=== PATIENT | female | born 1965 | race African-American/Black ===

== ENCOUNTER 2018-04-19 08:58 | Emergency (ER) | payer OTHER ==
[~2018-04-19] VITALS: Ht 167.6 cm; Wt 90.0 kg
[~2018-04-19 08:58] MED LIST: AMLO-512 PO; BENA10TA PO; CALC-613 PO; DOCU-119 PO; GLAT20I SQ; METO-558 PO; OMEP20 PO; TOPI25CA PO
[2018-04-19] MEDS ORDERED: PERTUSS(ACELL),DIPH,TET VAC/PF 0.5 ML VIAL IM ONE (11:15)
[2018-04-19] MEDS ORDERED: BUPIVACAINE/EPI/PF 0.5% 30 ML VIAL SQ ONE (11:45)
[2018-04-19 12:14] VITALS: BP 139/80
== END 2018-04-19 12:26 | disposition home or self-care (01) ==
LOC: EMS 09:04
DX: S81.011A Laceration without foreign body, right knee, initial encounter (principal); I10 Essential (primary) hypertension; E78.00 Pure hypercholesterolemia, unspecified; W25.XXXA Contact with sharp glass, initial encounter; Y93.89 Activity, other specified; Y92.89 Other specified places as the place of occurrence of the external cause; Y99.8 Other external cause status
CPT/HCPCS: 12002; 73562; 90471; 90715; 99283; J3490

== ENCOUNTER 2018-04-27 05:55 | Emergency (ER) | payer OTHER ==
[~2018-04-27] VITALS: Ht 167.6 cm; Wt 90.0 kg
[2018-04-27 06:11] VITALS: BP 133/86
== END 2018-04-27 06:37 | disposition home or self-care (01) ==
LOC: EMS 05:56
DX: S81.011D Laceration without foreign body, right knee, subsequent encounter (principal); E78.00 Pure hypercholesterolemia, unspecified; I10 Essential (primary) hypertension; Z90.710 Acquired absence of both cervix and uterus; Z79.899 Other long term (current) drug therapy; X58.XXXD Exposure to other specified factors, subsequent encounter

== ENCOUNTER 2023-09-22 10:29 | Emergency (ER) | payer OTHER ==
[~2023-09-22] VITALS: Ht 170.2 cm; Wt 109.1 kg
[~2023-09-22 10:29] MED LIST changes: +AMLO-258 PO; -AMLO-512 PO; +METO-325 PO; -METO-558 PO
[2023-09-22 10:36] VITALS: BP 140/95; PULSE 82; RESP 18; TEMP 98
[2023-09-22] MEDS ORDERED: CORTSOL AU (11:23)
[2023-09-22] MEDS ORDERED: AMOX1TAB16 PO (11:23)
[2023-09-22] MEDS ORDERED: IBUP-1492 PO (11:23)
[2023-09-22] MEDS ORDERED: ACET-3385 PO (11:23)
[2023-09-22] MEDS: IBUPROFEN 600 MG TABLET PO ONE (11:26)
[2023-09-22] MEDS: AMOX TR/POT CLAV 875 MG/125 MG TABLET PO ONE (11:26)
[2023-09-22] MEDS ORDERED: BENA40TA92 PO (11:27)
[2023-09-22] MEDS ORDERED: GABA-1181 PO (11:27)
[2023-09-22] MEDS ORDERED: AMLO10TA55 PO (11:27)
[2023-09-22] MEDS ORDERED: DOCU100C33 PO (11:27)
[2023-09-22] MEDS ORDERED: FAMO20 PO (11:27)
[2023-09-22] MEDS ORDERED: CALC-1271 PO (11:27)
[2023-09-22] MEDS ORDERED: GLAT40SY SQ (11:27)
[2023-09-22] MEDS ORDERED: METO25 PO (11:27)
[2023-09-22] MEDS ORDERED: LORA10TA7 PO (11:27)
[2023-09-22] MEDS ORDERED: ATOR40TA71 PO (11:27)
[2023-09-22] MEDS ORDERED: LATA2.5D14 OU (11:27)
[2023-09-22] MEDS: NEOMYCIN/POLYMYXIN B/HYDROCORT 10 ML OTIC SOLUTION AU ONE (11:48)
== END 2023-09-22 11:51 | disposition home or self-care (01) ==
LOC: EMS 10:33
DX: H66.93 Otitis media, unspecified, bilateral (principal); H60.93 Unspecified otitis externa, bilateral; E78.00 Pure hypercholesterolemia, unspecified; I10 Essential (primary) hypertension; G43.909 Migraine, unspecified, not intractable, without status migrainosus; Z90.710 Acquired absence of both cervix and uterus; Z98.890 Other specified postprocedural states
CPT/HCPCS: 99284; Z7502; Z7610

== ENCOUNTER 2023-09-27 22:58 | Emergency (ER) | payer OTHER ==
[~2023-09-27] VITALS: Ht 167.6 cm; Wt 107.0 kg
[~2023-09-27 22:58] MED LIST changes: +ACET-3385 PO; -AMLO-258 PO; +AMLO10TA55 PO; +AMOX1TAB16 PO; +ATOR40TA71 PO; -BENA10TA PO; +BENA40TA92 PO; +CALC-1271 PO; -CALC-613 PO; +CORTSOL AU; -DOCU-119 PO; +DOCU100C33 PO; +FAMO20 PO; +GABA-1181 PO; -GLAT20I SQ; +GLAT40SY SQ; +IBUP-1492 PO; +LATA2.5D14 OU; +LORA10TA7 PO; -METO-325 PO; +METO25 PO; -OMEP20 PO; -TOPI25CA PO
[2023-09-27 23:45] VITALS: BP 126/81; PULSE 70; RESP 16; TEMP 98.2
== END 2023-09-28 00:23 | disposition left against medical advice (07) ==
LOC: EMS 22:59
DX: H92.03 Otalgia, bilateral (principal); Z53.21 Procedure and treatment not carried out due to patient leaving prior to being seen by health care provider